=== PATIENT | male | born 1990 | race Caucasian/White ===

== ENCOUNTER 2020-06-06 18:32 | Emergency (ER) | payer OTHER ==
[~2020-06-06] VITALS: Ht 175.3 cm; Wt 77.1 kg
--- NOTE | 2020-06-06 18:50 | NUR ---
[email or web address], medical screening exam in progress
--- NOTE | 2020-06-06 19:05 | NUR ---
Pt out of ER for CT.
--- NOTE | 2020-06-06 19:22 | NUR ---
PT back to ER from CT.
--- NOTE | 2020-06-06 19:27 | NUR ---
Called [facility] a for pacemaker interrogation.
[2020-06-06 19:31] LABS: BASOPHILS % (AUTO) 0.5 % (0.0-2.0); EOSINOPHILS # (AUTO) 0.1 K/uL (0.0-0.7); EOSINOPHILS % (AUTO) 1.7 % (0.0-7.0); HEMATOCRIT 43.5 % (36.7-47.1); HEMOGLOBIN 14.5 g/dL (12.5-16.3); LYMPHOCYTES # (AUTO) 1.8 K/uL (20.0-40.0); LYMPHOCYTES % (AUTO) 24.4 % (20.5-51.5); MEAN CORPUSCULAR HEMOGLOBIN 27.8 uug (23.8-33.4); MEAN CORPUSCULAR HGB CONC 34 g/dL (32.5-36.3); MEAN CORPUSCULAR VOLUME 83.1 fL (73.0-96.2); MONOCYTES # (AUTO) 0.5 K/uL (2.0-10.0); MONOCYTES % (AUTO) 6.4 % (0.0-11.0); NEUTROPHILS # (AUTO) 4.9 K/uL (1.8-8.9); PLATELET COUNT (AUTO) 181 K/uL (152-348); RED BLOOD CELL COUNT(AUTO) 5.23 MIL/uL (4.06-5.63); WHITE BLOOD COUNT (AUTO) 7.3 K/uL (3.6-10.2)
[2020-06-06 19:38] LABS: CREATININE 0.9 mg/dL (0.6-1.3); POTASSIUM 3.8 mmol/L (3.5-5.1)
--- NOTE | 2020-06-06 19:38 | NUR ---
Received call back from [employer], spoke with Rao, , stated that RT should have a device to use to interrogate the pacemaker remotely. Called RT.
[2020-06-06 20:06] LABS: BILIRUBIN,DIRECT 0.1 mg/dL (0.0-0.2); BILIRUBIN,TOTAL 0.4 mg/dL (0.2-1.0); TOTAL PROTEIN, SERUM 7.5 g/dL (6.4-8.2)
--- NOTE | 2020-06-06 21:45 | NUR ---
Patient discharged to home in stable condition. Written and verbal after care instructions given. Patient verbalizes understanding of instructions. Stressed follow up or return to ER for worsening s/s. Patient out of ER with steady gait, no acute signs of distress, VSS, all belongings taken, provided with copies and CD of diagnostic procedures.
[2020-06-06 21:47] VITALS: BP 112/67
== END 2020-06-06 21:48 | disposition home or self-care (01) ==
LOC: ER 18:38
DX: R42 Dizziness and giddiness (principal); I44.2 Atrioventricular block, complete; Z95.0 Presence of cardiac pacemaker; Z79.01 Long term (current) use of anticoagulants; G93.89 Other specified disorders of brain; Z86.73 Personal history of transient ischemic attack (TIA), and cerebral infarction without residual deficits
CPT/HCPCS: 36415; 70030-TC; 70450; 71045; 85025; 85730; 93005; A4663

== ENCOUNTER 2022-07-12 08:55 | Emergency (ER) | payer OTHER ==
[~2022-07-12] VITALS: Ht 175.3 cm; Wt 73.5 kg
--- NOTE | 2022-07-12 09:30 | NUR ---
PT PLACED IN RM 4B; C/O HEADACE X 2WEEKS
--- NOTE | 2022-07-12 09:39 | NUR ---
LUCIEN IYER AT BEDSIDE FOR MSE
[2022-07-12] MEDS ORDERED: ACETAMINOPHEN 325 MG TABLET PO ONE (10:30)
[2022-07-12] MEDS ORDERED: KETOROLAC TROMETHAMINE 15 MG INJ IVP ONE (10:30)
[2022-07-12] MEDS ORDERED: IV NORMAL SALINE 500 ML BAG IV ONE ×2 (10:45→12:30)
[2022-07-12] MEDS ORDERED: METOCLOPRAMIDE HCL 10 MG/2 ML VIAL IV ONE (10:45)
[2022-07-12] MEDS ORDERED: ACETAMINOPHEN 325 MG TABLET ONE (11:00)
[2022-07-12] MEDS ORDERED: KETOROLAC TROMETHAMINE 15 MG INJ ONE (11:14)
[2022-07-12] MEDS ORDERED: METOCLOPRAMIDE HCL 10 MG/2 ML VIAL ONE (11:14)
[2022-07-12] MEDS ORDERED: MAGNESIUM SULFATE/D5W 100 ML IV SCH (12:30)
--- NOTE | 2022-07-12 13:00 | NUR ---
PT GIVEN ACI BY ER MD. PER MD PT VERBALIZED UNDERSTANDING AND DID NOT WANT TO WAIT FOR VERBAL ACI.
--- NOTE | 2022-07-12 13:30 | NUR ---
Evangelista salazar in ED - 07/12/22 at 1331 by [email or web address] PT PLACED IN 4B; C/O HEADACHE.
[2022-07-12 13:34] VITALS: BP 129/78
== END 2022-07-12 13:00 | disposition home or self-care (01) ==
LOC: ER 09:03
DX: R51.9 Headache, unspecified (principal); Z86.73 Personal history of transient ischemic attack (TIA), and cerebral infarction without residual deficits; I44.2 Atrioventricular block, complete; Z95.0 Presence of cardiac pacemaker; Z79.01 Long term (current) use of anticoagulants
CPT/HCPCS: 99284; 96374; 70450; 96361; 96375; J1885; J2765; J7040; A4663

== ENCOUNTER 2022-09-26 04:37 | Emergency (ER) | payer OTHER ==
[~2022-09-26] VITALS: Ht 175.3 cm; Wt 72.6 kg
--- NOTE | 2022-09-26 05:25 | NUR ---
Pt refused covid test, made aware.
[2022-09-26 05:49] LABS: HEMATOCRIT 43.5 % (36.7-47.1); MEAN CORPUSCULAR HEMOGLOBIN 27.3 uug (23.8-33.4); MEAN CORPUSCULAR VOLUME 82.7 fL (73.0-96.2); PLATELET COUNT (AUTO) 258 K/uL (152-348)
[2022-09-26 05:59] LABS: CARBON DIOXIDE 28 mmol/L (21-32); CHLORIDE 105 mmol/L (98-107); CREATININE 0.9 mg/dL (0.6-1.3); GLUCOSE 109 mg/dL (74-106); POTASSIUM 4.3 mmol/L (3.5-5.1); UREA NITROGEN, BLOOD 13 mg/dL (7-18)
[2022-09-26 06:13] LABS: ALANINE AMINOTRANSFERASE 26 U/L (16-63); ALKALINE PHOSPHATASE 83 U/L (50-136); ASPARTATE AMINOTRANSFERASE 13 U/L (15-37); BILIRUBIN,DIRECT 0.2 mg/dL (0.0-0.2); BILIRUBIN,TOTAL 0.4 mg/dL (0.2-1.0); TOTAL PROTEIN, SERUM 7.8 g/dL (6.4-8.2)
[2022-09-26] MEDS ORDERED: D-ME473S63 PO (06:19)
[2022-09-26] MEDS ORDERED: ALBU8.5H8 INH (06:19)
[2022-09-26 06:25] VITALS: BP 133/90
--- NOTE | 2022-09-26 06:25 | NUR ---
Patient discharged to home in stable condition. Written and verbal after care instructions given. Patient verbalizes understanding of instructions. Stressed follow up or return to ER for worsening s/s. Patient out of ER with steady gait, no acute signs of distress, VSS, all belongings taken, provided with copies of lab and ekg results.
== END 2022-09-26 06:26 | disposition home or self-care (01) ==
LOC: ER 04:41
DX: R06.00 Dyspnea, unspecified (principal); Z95.0 Presence of cardiac pacemaker; Z86.73 Personal history of transient ischemic attack (TIA), and cerebral infarction without residual deficits; I44.2 Atrioventricular block, complete
CPT/HCPCS: 36415; 71045; 84484; 85025; 93005; A4663